=== PATIENT | male | born 1955 | race Hispanic/Latino ===

== ENCOUNTER 2017-03-08 09:04 | Emergency (ER) | payer SELFPAY ==
[2017-03-08 09:37] LABS: APPEARANCE,URINE CLEAR (CLEAR); BILIRUBIN,URINE NEGATIVE (NEGATIVE); COLOR,URINE ORANGE (YELLOW); GLUCOSE, URINE (UA) NEGATIVE (NEGATIVE); KETONES,URINE 15 mg/dL (NEGATIVE); LEUKOCYTE ESTERASE ,URINE TRACE (NEGATIVE); NITRATE,URINE POSITIVE (NEGATIVE); OCCULT BLOOD,URINE SMALL (NEGATIVE); PH,URINE 5.5 (5.0-8.0); PROTEIN,URINE 100 (NEGATIVE)
[2017-03-08 09:39] LABS: BASOPHILS % (AUTO) 0.2 % (0.0-5.0); EOSINOPHILS % (AUTO) 0.2 % (0.0-8.0); HEMATOCRIT 36.2 % (42-54); LYMPHOCYTES % (AUTO) 9.5 % (21.0-51.0); MEAN CORPUSCULAR HEMOGLOBIN 28.4 pg (27.0-33.0); MEAN CORPUSCULAR HGB CONC 34.7 g/dL (32.0-36.0); MEAN CORPUSCULAR VOLUME 81.7 fL (79-99); NEUTROPHILS % (AUTO) 82.1 % (40.0-77.0); NUCLEATED RED BLOOD CELLS 0.1 % (0.0-0.19); PLATELET COUNT (AUTO) 248 K/uL (130-400); RED BLOOD CELL COUNT(AUTO) 4.43 MIL/uL (4.50-6.20)
[2017-03-08 09:46] LABS: POTASSIUM 3.8 mmol/L (3.5-5.1)
[2017-03-08 09:51] LABS: BACTERIA,URINE Rare /HPF (None Seen); MUCUS,URINE Rare LPF (None Seen); SQUAMOUS EPITHELIAL CELL,UR Rare /LPF (0-2)
[2017-03-08 09:51] LABS: ALBUMIN 3.2 g/dL (3.5-5.0); BILIRUBIN,TOTAL 1.2 mg/dL (0.2-1.0); TOTAL PROTEIN, SERUM 8.2 g/dL (6.0-8.3)
[2017-03-08] MEDS ORDERED: SODIUM CHLORIDE 0.9% 1000ML 1,000 ML IV ONE (09:55)
[2017-03-08] MEDS ORDERED: CEFTRIAXONE SODIUM 1 GM ONE (09:55)
== END 2017-03-08 10:45 | disposition home or self-care (01) ==
LOC: EDH 09:04
DX: N39.0 Urinary tract infection, site not specified (principal); R33.9 Retention of urine, unspecified; E11.9 Type 2 diabetes mellitus without complications; E78.5 Hyperlipidemia, unspecified; I10 Essential (primary) hypertension; Z86.73 Personal history of transient ischemic attack (TIA), and cerebral infarction without residual deficits
CPT/HCPCS: 36415; 51702; 80053; 81001; 85025; 87088; 96361; 96374; 99284; J0696; J7030

== ENCOUNTER 2021-04-27 22:04 | Emergency (ER) | payer OTHER ==
[~2021-04-27] VITALS: Ht 167.6 cm; Wt 74.4 kg
[2021-04-27 22:42] LABS: BASOPHILS % (AUTO) 0.4 % (0.0-5.0); EOSINOPHILS % (AUTO) 1.4 % (0.0-8.0); LYMPHOCYTES % (AUTO) 15.3 % (21.0-51.0); MEAN CORPUSCULAR HEMOGLOBIN 27.1 pg (27.0-33.0); MEAN CORPUSCULAR HGB CONC 31.8 g/dL (32.0-36.0); MEAN CORPUSCULAR VOLUME 85.2 fL (79-99); MONOCYTES % (AUTO) 9.9 % (3.0-13.0); NEUTROPHILS % (AUTO) 72.4 % (40.0-77.0); PLATELET COUNT (AUTO) 289 K/uL (130-400); RED BLOOD CELL COUNT(AUTO) 4.58 MIL/uL (4.50-6.20); WHITE BLOOD COUNT (AUTO) 7.1 K/uL (4.8-10.8)
[2021-04-27 23:07] LABS: CREATININE 1.5 mg/dL (0.5-1.5); POTASSIUM 4.5 mmol/L (3.5-5.1)
[2021-04-27 23:11] LABS: ALBUMIN 3.3 g/dL (3.5-5.0); BILIRUBIN,TOTAL 0.5 mg/dL (0.2-1.0); TOTAL PROTEIN, SERUM 8.3 g/dL (6.0-8.3)
[2021-04-27 23:32] LABS: APPEARANCE,URINE Cloudy (CLEAR); BILIRUBIN,URINE Negative (NEGATIVE); COLOR,URINE Yellow (YELLOW); GLUCOSE, URINE (UA) >=1000 mg/dL (NEGATIVE); KETONES,URINE Negative (NEGATIVE); LEUKOCYTE ESTERASE ,URINE Small (NEGATIVE); NITRATE,URINE Negative (NEGATIVE); OCCULT BLOOD,URINE Large (NEGATIVE); PH,URINE 5.5 (5.0-8.0); PROTEIN,URINE Trace mg/dL (NEGATIVE); UROBILINOGEN,URINE 0.2 mg/dL (0.2-1.0)
[2021-04-28 00:09] LABS: BACTERIA,URINE Few /HPF (None Seen); YEAST,URINE BUDDING Many /HPF (None Seen)
[2021-04-28 01:24] VITALS: BP 134/71
== END 2021-04-28 01:28 | disposition home or self-care (01) ==
LOC: EDH 22:04
DX: T83.091A Other mechanical complication of indwelling urethral catheter, initial encounter (principal); B37.49 Other urogenital candidiasis; I10 Essential (primary) hypertension; E11.9 Type 2 diabetes mellitus without complications; E78.00 Pure hypercholesterolemia, unspecified
CPT/HCPCS: 36415; 51702; 80053; 81001; 85025; 87088

== ENCOUNTER 2021-11-27 07:48 | Day surgery (SDC) | payer OTHER ==
[2021-11-21 12:14] LABS: BASOPHILS % (AUTO) 0.2 % (0.0-5.0); EOSINOPHILS % (AUTO) 1.1 % (0.0-8.0); HEMATOCRIT 37.1 % (42-54); LYMPHOCYTES % (AUTO) 21.8 % (21.0-51.0); MEAN CORPUSCULAR HEMOGLOBIN 26.7 pg (27.0-33.0); MEAN CORPUSCULAR HGB CONC 31.5 g/dL (32.0-36.0); MEAN CORPUSCULAR VOLUME 84.5 fL (79-99); MONOCYTES % (AUTO) 8.3 % (3.0-13.0); NEUTROPHILS % (AUTO) 68.2 % (40.0-77.0); PLATELET COUNT (AUTO) 211 K/uL (130-400); RED BLOOD CELL COUNT(AUTO) 4.39 MIL/uL (4.50-6.20); RED CELL DISTRIBUTION WIDTH 15.2 % (11.0-15.5); WHITE BLOOD COUNT (AUTO) 4.5 K/uL (4.8-10.8)
[2021-11-21 12:35] LABS: APPEARANCE,URINE CLEAR (CLEAR); BILIRUBIN,URINE NEGATIVE (NEGATIVE); COLOR,URINE YELLOW (YELLOW); GLUCOSE, URINE (UA) >=1000 mg/dL (NEGATIVE); KETONES,URINE NEGATIVE (NEGATIVE); LEUKOCYTE ESTERASE ,URINE MODERATE Leu/uL (NEGATIVE); NITRATE,URINE NEGATIVE (NEGATIVE); OCCULT BLOOD,URINE SMALL (NEGATIVE); PROTEIN,URINE NEGATIVE (NEGATIVE); UROBILINOGEN,URINE 0.2 mg/dL (0.2-1.0)
[2021-11-21 12:39] LABS: POTASSIUM 4.3 mmol/L (3.5-5.1)
[2021-11-21 12:45] LABS: PROTHROMBIN TIME 10.9 SEC (9.6-11.6)
[2021-11-21 12:47] LABS: BACTERIA,URINE Many /HPF (None Seen); SQUAMOUS EPITHELIAL CELL,UR Rare /HPF (0-2); WBC,URINE TNTC /HPF (0-1)
[2021-11-21 12:47] LABS: PARTIAL THROMBOPLASTIN TIME 32.5 SEC (26.3-35.5)
[2021-11-26 14:24] VITALS: BP 126/60
[2021-11-27] VITALS (17 sets, daily range): BP systolic 124–170; BP diastolic 56–81
[~2021-11-27] VITALS: Ht 167.6 cm; Wt 73.8 kg
[~2021-11-27 07:48] MED LIST: AEC81 PO; BACL20TA PO; BIOT5000 PO; CHOL500051 PO; CITA-107 PO; EMPA25TA PO; LISI10TA24 PO; LUTE20CA PO; METF-444 PO; PRAZ1CAP5 PO; ROSU20TA31 PO; TAMS-1 PO
[2021-11-27] MEDS ORDERED: GENTAMICIN 80 MG/NS 100 ML PB 100 ML IV ONE (08:26)
[2021-11-27] MEDS ORDERED: CEFTRIAXONE 1G VIAL ONE (08:26)
[2021-11-27] MEDS ORDERED: 0.9%NACL 1000ML 1,000 ML IV ONE (08:27)
[2021-11-27] MEDS ORDERED: CEFTRIAXONE 1G VIAL IVP SCH (08:38)
[2021-11-27] MEDS ORDERED: GENTAMICIN 80 MG/NS 100 ML PB 100 ML IV SCH (09:00)
[2021-11-27] MEDS ORDERED: BUPIVACAINE/PF 0.25% 30ML VIAL IJ ONE (09:06)
[2021-11-27] MEDS ORDERED: BACITRACIN 28.4 GM OINT TP ONE (09:54)
[2021-11-27] MEDS ORDERED: DEXAMETHASONE SOD PHOSPHATE 10MG/ML 1ML VIAL ONE (11:12)
[2021-11-27] MEDS ORDERED: FENTANYL CITRATE PF 50 MCG/1 ML 2ML VIAL ONE (11:12)
[2021-11-27] MEDS ORDERED: MIDAZOLAM HCL 1 MG/ML 2ML VIAL ONE (11:12)
[2021-11-27] MEDS ORDERED: PROPOFOL 10 MG/ML 20ML VIAL IV ONE (11:12)
[2021-11-27] MEDS ORDERED: LIDOCAINE PF 100MG/5ML (2%) SYRINGE 5ML ONE (11:12)
[2021-11-27] MEDS ORDERED: ONDANSETRON 4MG INJ ONE (11:12)
== END 2021-11-27 14:30 | disposition home or self-care (01) ==
LOC: DAH 07:48
PROVIDERS: ATTEND Urology
DX: R97.20 Elevated prostate specific antigen [PSA] (principal); Z20.822 Contact with and (suspected) exposure to COVID-19; N47.1 Phimosis; N40.1 Benign prostatic hyperplasia with lower urinary tract symptoms; N41.1 Chronic prostatitis; A63.0 Anogenital (venereal) warts; R33.8 Other retention of urine; I10 Essential (primary) hypertension; E11.9 Type 2 diabetes mellitus without complications; Z79.01 Long term (current) use of anticoagulants; Z79.899 Other long term (current) drug therapy; Z86.73 Personal history of transient ischemic attack (TIA), and cerebral infarction without residual deficits; Z79.82 Long term (current) use of aspirin; Z79.84 Long term (current) use of oral hypoglycemic drugs
CPT/HCPCS: 80048; 85025; 85610; 85730; 87077; 87088; 87186; 87426; 81001; 36415; 71045; 93005; 54161; 55700; 82948 ×2; 88304; 88305; 76872; 76942; A6260; A4663; J3010; J1100; J7030; J3490; J2001; J0696; J2250; J2704; J2405; J1580; A4215 ×2; A4649; A4223; A4222; A4221; A4600

== ENCOUNTER 2024-12-05 12:30 | Emergency (ER) | payer OTHER ==
[~2024-12-05] VITALS: Ht 167.6 cm; Wt 73.5 kg
[~2024-12-05 12:30] MED LIST changes: -ROSU20TA31 PO; +ROSU20TA98 PO; -TAMS-1 PO; +TAMS-55 PO
--- NOTE | 2024-12-05 13:03 | EKG ---
[facility] Test Date: 2024-12-05 Test Time: 12:58:52 Pat Name: NIKOLAY ZAMBRANO Department: [facility] Room: Gender: M Leak Patcher: [id number] : 1955 Requested By: LINA JIMENEZ Order Number: [id number] Reading MD: Wallace Mclaughlin Measurements Intervals [place] Rate: 64 P: 50 MD: 170 QRS: 30 QRSD: 94 T: 29 QT: 400 QTc: 412 Interpretive Statements Sinus rhythm Compared to ECG 11/21/2021 10:58:01 No significant changes Electronically Signed On 12-05-2024 18:07:40 CDT by Wallace Mclaughlin Please click the below link to view image of tracing.
--- NOTE | 2024-12-05 13:10 | NUR ---
PATIENT TAKEN TO CT.
--- NOTE | 2024-12-05 13:10 | NUR ---
PATIENT CARE ASSUMED AT THIS TIME.
[2024-12-05 13:18] LABS: CREATININE 3.5 mg/dL (0.5-1.3); GLOMERULAR FILTR. RATE CALC 18 mL/min (>90); GLUCOSE,RANDOM 98 mg/dL (70-105); SODIUM SERUM 140 mmol/L (136-145); UREA NITROGEN, BLOOD 39 mg/dL (7-18)
[2024-12-05 13:22] LABS: ASPARTATE AMINOTRANSFERASE 14 U/L (10-37); CREATINE KINASE, TOTAL 80 U/L (21-232); TOTAL PROTEIN, SERUM 8.1 g/dL (6.0-8.3)
--- NOTE | 2024-12-05 13:25 | NUR ---
PATIENT RETURNED FROM CT.
--- NOTE | 2024-12-05 13:29 | HMCIMG ---
EXAM: CT Head Without IV contrast. CLINICAL HISTORY: dizzy TECHNIQUE: Axial computed tomography images of the head/brain without intravenous contrast. COMPARISON: None provided. FINDINGS: BRAIN: No acute bleed or infarct. Chronic ischemic change. 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 VENTRICLES: No hydrocephalus. ORBITS: The orbits are unremarkable. SINUSES AND MASTOIDS: The paranasal sinuses and mastoid air cells are clear. BONES: No fracture. SOFT TISSUES: Unremarkable. IMPRESSION: 1. No acute bleed or infarct. Chronic ischemic change. 2. 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 /Byers
[2024-12-05] MEDS: 0.9%NACL 1000ML 1,000 ML IV ONE (13:32)
[2024-12-05 13:39] LABS: IMMATURE GRANULOCYTE ABSOLUTE 0.02 K/uL (0-1); NUCLEATED RED BLOOD CELLS 0.0 % (0.0-0.19); PLATELET COUNT (AUTO) 223 K/uL (130-400); RED BLOOD CELL COUNT(AUTO) 3.45 MIL/uL (4.50-6.20); RED CELL DISTRIBUTION WIDTH 14.4 % (11.0-15.5); WHITE BLOOD COUNT (AUTO) 4.0 K/uL (4.8-10.8)
--- NOTE | 2024-12-05 13:56 | HMCIMG ---
EXAM: CT Abdomen and Pelvis Without IV Contrast CLINICAL HISTORY: Dizziness TECHNIQUE: Axial computed tomography images of the abdomen and pelvis obtained without intravenous contrast. CONTRAST: No IV contrast administered. COMPARISON: None provided.FINDINGS: LUNG BASES: Bibasilar atelectasis noted. No pleural effusion. LIVER: Unremarkable. GALLBLADDER AND BILE DUCTS: Gallbladder appears within normal limits. No radio-opaque gallstones or biliary ductal dilatation. PANCREAS: Tiny punctate calcific focus noted. Otherwise unremarkable. SPLEEN: Unremarkable. ADRENAL GLANDS: Unremarkable. KIDNEYS, URETERS, AND BLADDER: Diffuse perinephric fatty stranding bilaterally, suggestive of underlying medical renal disease. Left kidney: Mid-pole cortical cyst measuring 3.2 cm in diameter. Another cyst with exophytic component measuring 3.0 cm arising from the mid-pole. Both cysts show well-defined, thin, smooth up, without septations, calcifications (non-contrast study) ??? consistent with Bosniak category II. No hydronephrosis, hydroureter, or urinary calculi. Urinary bladder is unremarkable. STOMACH AND BOWEL: Unremarkable appearance of the stomach and bowel. No obstruction, wall thickening, or inflammatory changes identified. APPENDIX: Normal. No CT evidence of acute appendicitis. PERITONEUM: No free fluid or free air. LYMPH NODES: No lymphadenopathy. REPRODUCTIVE ORGANS: Prostate gland enlarged, measuring 4.9 ??? 5.8 ??? 5.1 cm (calculated volume ? 76 cc) and indenting the urinary bladder base by 1.2 cm. Tiny calcific focus noted. VASCULATURE: Calcified atherosclerotic changes seen in the intra-abdominal aorta, bilateral iliac, and pelvic vessels. No aneurysmal dilatation. BONES: Degenerative osseous changes noted with lumbar scoliosis, multilevel intervertebral disc space narrowing, and vacuum phenomenon. No acute osseous abnormality.IMPRESSION: No acute intra-abdominal or pelvic abnormality. Bilateral perinephric fat stranding, likely related to medical renal disease. Left renal cysts (3.2 cm and 3.0 cm, Bosniak II). Prostatomegaly (?76 cc) with mild bladder base indentation; tiny prostatic calcification. /Wrights
[2024-12-05 15:12] LABS: APPEARANCE,URINE CLEAR (CLEAR); GLUCOSE, URINE (UA) >=1000 mg/dL (NEGATIVE); LEUKOCYTE ESTERASE ,URINE NEGATIVE Leu/uL (NEGATIVE); NITRATE,URINE NEGATIVE (NEGATIVE); OCCULT BLOOD,URINE SMALL (NEGATIVE)
[2024-12-05 15:17] LABS: ADD UA MICROSCOPIC YES
[2024-12-05] MEDS ORDERED: ONDA-243 PO (16:54)
--- NOTE | 2024-12-05 16:54 | ERN ---
ED Note History of Present Illness Stated Complaint: N/V Chief Complaint: Multiple Complaints Time Seen by MD: 12:45 Dictation: 69-year-old male presenting to the emergency department with generalized weakness and nausea and vomiting. No chest pain or shortness a breath. Patient denies fever. Allergies: Coded Allergies: No Known Drug Allergies (Unverified Allergy, Unknown, 04/27/21) Home Meds Reported Medications Baclofen (Baclofen) 20 Mg Tablet, 10 MG PO HS, TAB 11/26/21 Tamsulosin HCl (Flomax) 0.4 Mg Cap.er.24h, 0.4 MG PO HS, CAPSULE.DR 11/26/21 Prazosin HCl (Prazosin HCl) 1 Mg Capsule, 1 MG PO DAILY, CAP 11/26/21 Biotin (Biotin) 5,000 Mcg Tab.rapdis, 5000 MCG PO DAILY, TAB 11/26/21 Lutein (Lutein) 20 Mg Capsule, 20 MG PO DAILY, CAP 11/26/21 Rosuvastatin Calcium (Rosuvastatin Calcium) 20 Mg Tablet, 20 MG PO HS, TAB 11/26/21 Aspirin (ASPIRIN 81 MG ECTAB) 81 Mg Ectab, 81 MG PO DAILY, TAB.EC RESTART ASPIRIN ON Wednesday11/26/21 Cholecalciferol (Vitamin D3) (Vitamin D3) 125 Mcg Capsule, 125 MCG PO DAILY, CAP 11/26/21 Lisinopril (Lisinopril) 10 Mg Tablet, 10 MG PO DAILY, TAB 11/26/21 Citalopram Hydrobromide (Citalopram HBr) 20 Mg Tablet, 20 MG PO DAILY, TAB 11/26/21 Empagliflozin (Jardiance) 25 Mg Tablet, 25 MG PO DAILY, TAB 11/26/21 Metformin HCl (Metformin HCl) 500 Mg Tablet, 500 MG PO BID, TAB 11/26/21 Past Medical History Past Medical History: Diabetes-Type II, High Cholesterol, Hypertension Surgical History: None Review of System Dictation Constitutional: Negative for fever,chills, and weight loss Eyes: Negative for injury, pain,redness, and discharge ENT: Negative for injury,pain or swelling Cardiovascular: Negative for chest pain, palpitations, and edema Respiratory: Negative for shortness of breath, cough, and wheezing, Abdomen/GI: per HPI : Negative for injury, bleeding and discharge MS/Extremity: Negative for injury and deformity Skin: Negative for rash, and discoloration Neuro: per HPI Initial Vital Sign VS Vital Signs Date Time Temp Pulse Resp B/P (MAP) Pulse Ox O2 Delivery O2 Flow Rate FiO2 12/05/24 12:41 98.6 69 18 104/45 97 12/05/24 13:12 Room Air* 0 21 Physical Exam Dictation General: awake, alert, NAD Head/Face: Normocephalic, atraumatic Eyes: PERRL, EOMI, vision at baseline ENT: oral cavity clear, TMs clear, no signs of infection Neck: Trachea midline, supple, no nuchal rigidity Cardiovascular: RRR, normal S1/S2, No MRGs, no JVD Respiratory: CTAB, no respiratory distress, No rales or wheezes Abdomen: Soft, non-tender, non-distended, normal bowel sounds, no guarding or rebound. Skin: Warm, dry, normal turgor, no rash MS/Extremity: Pulses equal, no cyanosis, neurovascular intact, FROM Neuro: COAx4, GCS 15, strength 5/5, CN 2-12 intact, normal cerebellar exam, normal gait, Psych: Normal behavior, mood, and affect normal Results (Laboratory/Radiology) Laboratory/Radiology Laboratory Tests Test 12/05/24 13:00 12/05/24 15:04 White Blood Count 4.0 K/uL (4.8-10.8) L Red Blood Count 3.45 MIL/uL (4.50-6.20) L Hemoglobin 9.8 g/dL (14.0-18.0) L Hematocrit 31.0 % (42-54) L Mean Corpuscular Volume 89.9 fL (79-99) Mean Corpuscular Hemoglobin 28.4 pg (27.0-33.0) Mean Corpuscular Hemoglobin Concent 31.6 g/dL (32.0-36.0) L Red Cell Distribution Width 14.4 % (11.0-15.5) Platelet Count 223 K/uL (130-400) Mean Platelet Volume 10.1 fL (7.5-10.5) Immature Granulocyte % (Auto) 0.5 % (0-1) Neutrophils (%) (Auto) 62.8 % (40.0-77.0) Lymphocytes (%) (Auto) 24.8 % (21.0-51.0) Monocytes (%) (Auto) 8.3 % (3.0-13.0) Eosinophils (%) (Auto) 3.3 % (0.0-8.0) Basophils (%) (Auto) 0.3 % (0.0-5.0) Neutrophils # (Auto) 2.5 K/uL (1.8-7.7) Lymphocytes # (Auto) 1.0 K/uL (1.0-4.8) Monocytes # (Auto) 0.3 K/uL (0.1-1.0) Eosinophils # (Auto) 0.13 K/uL (0.00-0.70) Basophils # (Auto) 0.01 K/uL (0.00-0.20) Absolute Immature Granulocyte (auto 0.02 K/uL (0-1) Nucleated Red Blood Cells 0.0 % (0.0-0.19) Sodium Level 140 mmol/L (136-145) Potassium Level 4.8 mmol/L (3.5-5.1) Chloride Level 104 mmol/L (101-111) Carbon Dioxide Level 24 mmol/L (21-32) Blood Urea Nitrogen 39 mg/dL (7-18) H Creatinine 3.5 mg/dL (0.5-1.3) H Glomerular Filtration Rate Calc 18 mL/min (>90) Random Glucose 98 mg/dL (70-105) Total Calcium 9.4 mg/dL (8.5-10.1) Total Bilirubin 0.6 mg/dL (0.2-1.0) Direct Bilirubin 0.1 mg/dL (0.0-0.3) Aspartate Amino Transf (AST/SGOT) 14 U/L (10-37) Alanine Aminotransferase (ALT/SGPT) 13 U/L (12-78) Alkaline Phosphatase 78 U/L (50-136) Ammonia < 10 umol/L (11-32) L Total Creatine Kinase 80 U/L (21-232) Troponin I High Sensitivity 6 ng/L (4-75) Total Protein 8.1 g/dL (6.0-8.3) Albumin 3.8 g/dL (3.5-5.0) Lipase 207 U/L (16-77) H Urine Color LIGHT-YELLOW (YELLOW) Urine Appearance CLEAR (CLEAR) Urine pH 5.5 (5.0-8.0) Urine Specific [place] 1.015 (1.001-1.031) Urine Protein 30 mg/dL (NEGATIVE) H Urine Glucose (UA) >=1000 mg/dL (NEGATIVE) H Urine Ketones NEGATIVE mg/dL (NEGATIVE) Urine Occult Blood SMALL (NEGATIVE) H Urine Nitrate NEGATIVE (NEGATIVE) Urine Bilirubin NEGATIVE mg/dL (NEGATIVE) Urine Urobilinogen 0.2 mg/dL (0.2-1.0) Urine Leukocyte Esterase NEGATIVE Josias/uL Urine RBC 0-1 /HPF (0-1) Urine WBC 0-1 /HPF (0-1) Urine Bacteria RARE /HPF (None Seen) Labs Reviewed?: Yes ED Course ED Course Orders Procedure Category Date Status Time 12 Lead Ekg Tracing- EKG 12/05/24 Complete Technical 12:53 Basic Metabolic Panel LAB 12/05/24 Complete 12:53 Cbc With Differential LAB 12/05/24 Complete 12:53 Hepatic Function Panel LAB 12/05/24 Complete 12:53 Creatine Kinase, Total LAB 12/05/24 Complete 12:53 Ammonia LAB 12/05/24 Complete 12:53 Lipase LAB 12/05/24 Complete 12:53 Troponin I High LAB 12/05/24 Complete Sensitivity 12:53 Urinalysis Profile LAB 12/05/24 Complete 12:53 Ct Head/Brain W/O CT 12/05/24 Resulted Contrast 12:53 Ct Abd/Pel Wo Con CT 12/05/24 Resulted Renal/Appy 12:53 Ondansetron 4mg Inj PHA 12/05/24 Complete (Zofran 4mg Inj) 12:53 0.9%Nacl 1000ml (Ns PHA 12/05/24 Complete 1000ml) 13:00 Current Medications Medications (Trade) Dose Ordered Sig/Marie Route PRN Reason Start Time Stop Time Status Last Admin Dose Admin Ondansetron HCl (zoFRAN 4MG INJ) 4 mg ONCE STAT IVP 12/05/24 12:53 12/05/24 12:55 DC 12/05/24 13:32 Sodium Chloride 1,000 ml @ 0 mls/hr ONCE ONCE IV 12/05/24 13:00 12/05/24 13:01 DC 12/05/24 13:32 Vital Signs Date Time Temp Pulse Resp B/P (MAP) Pulse Ox O2 Delivery O2 Flow Rate FiO2 12/05/24 15:07 98.6 66 18 117/57 97 Room Air* 0 21 12/05/24 13:12 98.6 69 18 104/45 97 Room Air* 0 21 12/05/24 12:41 98.6 69 18 104/45 97 Medical Decision Making MDM MDM: Differential diagnosis: Rationale: Tests considered and ordered secondary to shared decision making include: Previous outside records reviewed: Old ER visits. Risk of complication and/or morbidity or mortality of patient management: None Medications-Per medication reconciliation Need for hospitalization: Patient does not meet criteria for hospitalization. Need for emergency major/minor surgery: No There are no social concerns with this patient. Prescription drug management Prescriptions will include symptomatic care Patient's prior external medical records from other ER visits were reviewed by me as indicated. Prior testing and results from previous visits were reviewed. Prior tests were taken into account with medical decision making and resource utilization, independent historian/historians were used to obtain complete medical history. I independently interpreted the test that were performed, results were reviewed by me and considered findings on radiology if ordered. Medical management and examination interpretation discussions were had by me with other qualified healthcare professionals as indicated for the patient's care. 69-year-old male with abdominal pain nausea vomiting, generalized weakness stable exam negative workup, patient has chronic renal insufficiency which is doctor has been following up, no recent changes. DX & DISP Disposition: Discharge Departure Impression: Primary Impression: Acute vomiting Additional Impression: Generalized weakness Condition: Stable Scripts Ondansetron (Ondansetron Odt) 4 Mg Tab.rapdis 4 MG PO BID for vomiting for 5 Days, #10 TAB Prov: LINA JIMENEZ MD 12/05/24 Referrals: NICO HAYES MD (PCP) LINA JIMENEZ MD Dec 05, 2024 16:54
[2024-12-05 16:58] VITALS: BP 117/57; PULSE 66; RESP 18; TEMP 98.6; O2SAT 97
== END 2024-12-05 17:05 | disposition home or self-care (01) ==
LOC: EDH 12:30
DX: R11.2 Nausea with vomiting, unspecified (principal); R53.1 Weakness; E11.9 Type 2 diabetes mellitus without complications; E78.00 Pure hypercholesterolemia, unspecified; I10 Essential (primary) hypertension; Z79.82 Long term (current) use of aspirin; Z79.84 Long term (current) use of oral hypoglycemic drugs; Z79.899 Other long term (current) drug therapy; Z86.73 Personal history of transient ischemic attack (TIA), and cerebral infarction without residual deficits
CPT/HCPCS: 99285; 70450; 96374; 96361; 82550; 80076; 84484; 80048; 82140; 83690; 85025; 81001; 36415; 74176; 93005; J7030; J2405